=== PATIENT | male | born 1930 | race Caucasian/White ===

== ENCOUNTER 2016-11-08 17:37 | Emergency (ER) | payer MEDICARE, OTHER ==
[2016-11-08 17:56] VITALS: BP 130/61
[2016-11-08] MEDS ORDERED: Sodium Chloride 0.9% 10 ML Syringe FLUSH PRN ×2 (18:46→20:15)
--- NOTE | 2016-11-08 19:19 | EDM.PDOC ---
ED HPI GENERAL MEDICAL PROBLEM - General Chief Complaint: Cardiovascular Problem Stated Complaint: SENT BY DR. PINEDA Time Seen by Provider: 11/08/16 18:48 Source of Information: Reports: Patient History Limitations: Reports: No Limitations - History of Present Illness INITIAL COMMENTS - FREE TEXT/NARRATIVE: 86-year-old male presents for evaluation and treatment multiple different complaints. The patient is unaware why he is here. He currently has no complaints. He denies any current chest pain, fevers, nausea, vomiting or any shortness of breath. His family feels that he is more short of breath than normal. He complains of a slight sore throat. Dr. Crawley called earlier today. The patient was seen at his clinic. Reportedly the patient had not done well over the weekend. He presented today with bilateral leg pain, shortness of breath, sore throat and malaise. Lab studies were performed and he was found to have an elevated d-dimer, 1.96, this was sent to us for further management and care. Of note his CRP was also markedly elevated, 186. his LFTs are slightly elevated. The patient's is present and states that he had a rough weekend. She states on Tuesday night he woke up with stiffness in his bilateral arms. She attempted to bring his arms down as they were laying in bed. She was unable to do this. The patient does not remember this. She feels he is more weak than normal. She also feels that he is more short of breath than normal. She reports that over the last few days he has been complaining of bilateral leg pain. States the right is greater than the left. She states she can no longer put on his socks due to weakness. Of note, patient reports in 1987 he was sent to [facility]. He experienced diffuse generalized, weakness reports his muscles were unable to work. He had A complete work up at [place]. They were unable to identify the cause of his weakness. He responded well with high doses of steroids. Past surgeries include a cholecystectomy. - Related Data Allergies Allergy/AdvReac Type Severity Reaction Status Date / Time No Known Allergies Allergy Verified 11/08/16 17:57 Home Meds: Home Meds Antiox#10/Om3/DHA/EPA/Lut/Zeax [I-Caps with Lutein-Tustin 3 SFG] 1 tab PO DAILY 11/08/16 [History] Aspirin [Ecotrin] 81 mg PO DAILY 11/08/16 [History] Losartan [Cozaar] 100 mg PO DAILY 11/08/16 [History] Prednisone [IJD: predniSONE] 20 mg PO WITHBREAKFAST #7 tab 11/08/16 [Rx] Sertraline [Zoloft] 25 mg PO DAILY 11/08/16 [History] Simvastatin [Simvastatin] 20 mg PO DAILY 11/08/16 [History] Past Medical History - Past Health History Medical/Surgical History: Denies Medical/Surgical History HEENT History: Reports: Impaired Vision Cardiovascular History: Reports: High Cholesterol, Hypertension Social & Family History - Tobacco Use Smoking Status *Q: Never Smoker Second Hand Smoke Exposure: No - Alcohol Use Days Per Week of Alcohol Use: 0 - Recreational Drug Use Recreational Drug Use: No ED ROS GENERAL - Review of Systems Review Of Systems: See Below Constitutional: Reports: Malaise, Weakness. Denies: Fever HEENT: Reports: Throat Pain Respiratory: Reports: Shortness of Breath Cardiovascular: Denies: Chest Pain GI/Abdominal: Denies: Abdominal Pain, Nausea, Vomiting Musculoskeletal: Reports: Leg Pain (bilateral, right > left) ED EXAM, GENERAL - Physical Exam Exam: See Below Exam Limited By: No Limitations General Appearance: Alert, WD/WN, No Apparent Distress Ears: Normal External Exam, Normal Canal, Hearing Grossly Normal, Normal TMs Nose: Normal Inspection Throat/Mouth: Normal Inspection, Normal Lips, Normal Voice, No Airway Compromise Neck: Normal Inspection, Supple, Non-Tender Respiratory/Chest: No Respiratory Distress, Lungs Clear, Normal Breath Sounds Cardiovascular: Normal Peripheral Pulses, Regular Rate, Rhythm, No Edema, Systolic Murmur (grade 2) Peripheral Pulses: 2+: Radial (L), Radial (R), Posterior Tibial (L), Posterior Tibial (R), Dorsalis Pedis (L), Dorsalis Pedis (R) GI/Abdominal: Normal Bowel Sounds, Soft, Non-Tender Extremities: Normal Inspection, Non-Tender, Normal Capillary Refill, Other ( negative straight leg raise bilaterally) Neurological: Alert, Oriented, Normal Cognition Psychiatric: Normal Affect, Normal Mood Skin Exam: Warm, Dry, Normal Color EKG INTERPRETATION EKG Date: 11/08/16 Time: 18:50 Rhythm: NSR Rate (beats/min): 75 [place]: normal P-wave: present QRS: LBBB ST-T: normal QT: normal Comparison: no change EKG Interpretation Comments: Sinus rhythm at 75 bpm. LBBB pattern. No obvious ischemia. Reviewed by myself and Dr. Batres. Course - Vital Signs Last Recorded V/S: Last Vital Signs Temp 37.4 C 11/08/16 17:55 Pulse 79 11/08/16 17:55 Resp 18 11/08/16 17:55 BP 130/61 11/08/16 17:55 Pulse Ox 98 11/08/16 17:55 - Orders/Labs/Meds Labs: Laboratory Tests 11/08/16 11/08/16 11/08/16 Range/Units 19:00 19:00 19:00 WBC 9.32 H (4.23-9.07) K/mm3 RBC 3.60 L (4.63-6.08) M/mm3 Hgb 11.8 L (13.7-17.5) gm/L Hct 34.2 L (40.1-51.0) % MCV 95.0 H (79.0-92.2) fl MCH 32.8 H (25.7-32.2) pg MCHC 34.5 (32.2-35.5) g/dl RDW Std Deviation 35.6 (35.1-43.9) fL Plt Count 338 H (163-337) K/mm3 MPV 8.5 L (9.4-12.3) fl Neut % (Auto) 75.8 H (34.0-67.9) % Lymph % (Auto) 10.5 L (21.8-53.1) % Gilliam % (Auto) 11.7 (5.3-12.2) % Eos % (Auto) 1.4 (0.8-7.0) Baso % (Auto) 0.3 (0.1-1.2) % Neut # (Auto) 7.06 H (1.78-5.38) K/mm3 Lymph # (Auto) 0.98 L (1.32-3.57) K/mm3 Gilliam # (Auto) 1.09 H (0.30-0.82) K/mm3 Eos # (Auto) 0.13 (0.04-0.54) K/mm3 Baso # (Auto) 0.03 (0.01-0.08) K/mm3 ESR (0-15) mm/hr PT 10.7 (8.0-13.0) SECONDS INR 0.98 APTT 30 (22-36) SECONDS Sodium 135 L (136-145) mEq/L Potassium 4.2 (3.5-5.1) mEq/L Chloride 100 (98-107) mEq/L Carbon Dioxide 29 (21-32) mEq/L Anion Gap 10.2 (5-15) BUN 14 (7-18) mg/dL Creatinine 1.0 (0.7-1.3) mg/dL Est Cr Clr Drug Dosing TNP Estimated GFR (MDRD) > 60 (>60) mL/min BUN/Creatinine Ratio 14.0 (14-18) Glucose 130 H (83-115) mg/dL Calcium 8.9 (8.5-10.1) mg/dL Magnesium (1.8-2.4) mg/dl Total Bilirubin 0.5 (0.2-1.0) mg/dL AST 43 H (15-37) U/L ALT 67 H (16-63) U/L Alkaline Phosphatase 139 H (46-116) U/L Creatine Kinase (39-308) U/L CK-MB (CK-2) 0.8 (0-3.6) ng/ml Troponin I < 0.017 (0.00-0.056) ng/mL C-Reactive Protein (<1.0) mg/dL B-Natriuretic Peptide (0-100) pg/mL Total Protein 7.0 (6.4-8.2) g/dl Albumin 2.6 L (3.4-5.0) g/dl Globulin 4.4 gm/dL Albumin/Globulin Ratio 0.6 L (1-2) Monoscreen (NEGATIVE) 11/08/16 11/08/16 11/08/16 Range/Units 19:00 19:00 19:00 WBC (4.23-9.07) K/mm3 RBC (4.63-6.08) M/mm3 Hgb (13.7-17.5) gm/L Hct (40.1-51.0) % MCV (79.0-92.2) fl MCH (25.7-32.2) pg MCHC (32.2-35.5) g/dl RDW Std Deviation (35.1-43.9) fL Plt Count (163-337) K/mm3 MPV (9.4-12.3) fl Neut % (Auto) (34.0-67.9) % Lymph % (Auto) (21.8-53.1) % Gilliam % (Auto) (5.3-12.2) % Eos % (Auto) (0.8-7.0) Baso % (Auto) (0.1-1.2) % Neut # (Auto) (1.78-5.38) K/mm3 Lymph # (Auto) (1.32-3.57) K/mm3 Gilliam # (Auto) (0.30-0.82) K/mm3 Eos # (Auto) (0.04-0.54) K/mm3 Baso # (Auto) (0.01-0.08) K/mm3 ESR (0-15) mm/hr PT (8.0-13.0) SECONDS INR APTT (22-36) SECONDS Sodium (136-145) mEq/L Potassium (3.5-5.1) mEq/L Chloride (98-107) mEq/L Carbon Dioxide (21-32) mEq/L Anion Gap (5-15) BUN (7-18) mg/dL Creatinine (0.7-1.3) mg/dL Est Cr Clr Drug Dosing Estimated GFR (MDRD) (>60) mL/min BUN/Creatinine Ratio (14-18) Glucose (83-115) mg/dL Calcium (8.5-10.1) mg/dL Magnesium 2.0 (1.8-2.4) mg/dl Total Bilirubin (0.2-1.0) mg/dL AST (15-37) U/L ALT (16-63) U/L Alkaline Phosphatase (46-116) U/L Creatine Kinase (39-308) U/L CK-MB (CK-2) (0-3.6) ng/ml Troponin I (0.00-0.056) ng/mL C-Reactive Protein (<1.0) mg/dL B-Natriuretic Peptide 397 H (0-100) pg/mL Total Protein (6.4-8.2) g/dl Albumin (3.4-5.0) g/dl Globulin gm/dL Albumin/Globulin Ratio (1-2) Monoscreen Negative (NEGATIVE) 11/08/16 11/08/16 11/08/16 Range/Units 19:00 19:00 19:00 WBC (4.23-9.07) K/mm3 RBC (4.63-6.08) M/mm3 Hgb (13.7-17.5) gm/L Hct (40.1-51.0) % MCV (79.0-92.2) fl MCH (25.7-32.2) pg MCHC (32.2-35.5) g/dl RDW Std Deviation (35.1-43.9) fL Plt Count (163-337) K/mm3 MPV (9.4-12.3) fl Neut % (Auto) (34.0-67.9) % Lymph % (Auto) (21.8-53.1) % Gilliam % (Auto) (5.3-12.2) % Eos % (Auto) (0.8-7.0) Baso % (Auto) (0.1-1.2) % Neut # (Auto) (1.78-5.38) K/mm3 Lymph # (Auto) (1.32-3.57) K/mm3 Gilliam # (Auto) (0.30-0.82) K/mm3 Eos # (Auto) (0.04-0.54) K/mm3 Baso # (Auto) (0.01-0.08) K/mm3 ESR 98 H (0-15) mm/hr PT (8.0-13.0) SECONDS INR APTT (22-36) SECONDS Sodium (136-145) mEq/L Potassium (3.5-5.1) mEq/L Chloride (98-107) mEq/L Carbon Dioxide (21-32) mEq/L Anion Gap (5-15) BUN (7-18) mg/dL Creatinine (0.7-1.3) mg/dL Est Cr Clr Drug Dosing Estimated GFR (MDRD) (>60) mL/min BUN/Creatinine Ratio (14-18) Glucose (83-115) mg/dL Calcium (8.5-10.1) mg/dL Magnesium (1.8-2.4) mg/dl Total Bilirubin (0.2-1.0) mg/dL AST (15-37) U/L ALT (16-63) U/L Alkaline Phosphatase (46-116) U/L Creatine Kinase 70 (39-308) U/L CK-MB (CK-2) (0-3.6) ng/ml Troponin I (0.00-0.056) ng/mL C-Reactive Protein 16.3 H* (<1.0) mg/dL B-Natriuretic Peptide (0-100) pg/mL Total Protein (6.4-8.2) g/dl Albumin (3.4-5.0) g/dl Globulin gm/dL Albumin/Globulin Ratio (1-2) Monoscreen (NEGATIVE) Meds: Medications Discontinued Medications Generic Name Dose Route Start Last Admin Trade Name Freq PRN Reason Stop Dose Admin Sodium Chloride 100 mls @ 65 mls/hr 11/08/16 20:15 11/08/16 20:45 Normal Saline IV 65 mls/hr ASDIRECTED STEFAN Administration Iopamidol 100 ml 11/08/16 20:15 11/08/16 20:45 Isovue-370 (76%) IVPUSH 11/08/16 20:16 100 ml ONETIME ONE Administration Iopamidol 50 ml 11/08/16 20:15 11/08/16 20:45 Isovue-370 (76%) IVPUSH 11/08/16 20:16 50 ml ONETIME ONE Administration Sodium Chloride 10 ml 11/08/16 18:46 11/08/16 19:00 Saline Flush FLUSH 10 ml ASDIRECTED PRN Administration Keep Vein Open Sodium Chloride 10 ml 11/08/16 20:15 11/08/16 20:45 Saline Flush FLUSH 10 ml ONETIME PRN Administration IV FLUSH - Radiology Interpretation Free Text/Narrative:: CT Angiogram of the chest impression per Dr. Delong: 1. No findings of PE 2. Other incidental findings as described. Bilateral lower extremity ultrasound of the legs impression per Vrad: Normal bilateral lower extremity duplex venous ultrasound. - Re-Assessments/Exams Free Text/Narrative Re-Assessment/Exam: 11/08/16 19:47 WBC is mildly elevated at 9.32, hgb is 11.8, plts are 338 sodium is 135, potassium is 4.2 and chloride is 100. Anion gap is 10.2. Glucose is 130 trop is <0.017 CKMB is 0.8 BNP is 397 d-dimer obtained earlier is 1.96 mono added on to labs 11/08/16 21:18 Gilliam is negative Magnesium and CK added to labs. 11/08/16 21:51 Reviewed the labs, ekg and chest CT results with the patient and his family. We will obtain bilateral ultrasound of the legs due to leg pain complaints and elevated d dimer. Discussed case with Dr. Euceda recommend adding on an ESR and CRP. Possibly PMR causing symptoms. 11/08/16 23:02 Magnesium is 2.0 creatinine kinase is 70 CRP is 16.3 ESR is 98 Ultrasound is negative. I feel he likely has something like PMR. Will start low dose, 20mg daily, prednisone. Will discharge home. Discharge instructions as documented. Departure - Departure Time of Disposition: 23:01 Disposition: Home, Self-Care 01 Condition: fair Clinical Impression: Leg pain, bilateral, Viral pharyngitis Prescriptions: Prednisone [IJD: predniSONE] 20 mg PO WITHBREAKFAST #7 tab Referrals: Keshawn Pineda MD [Primary Care Provider] - Forms: ED Department Discharge Additional Instructions: Take the prednisone as prescribed. One tab daily for 7 days. Start this prescription tomorrow. [id number] Tylenol or Motrin as needed for pain relief. Follow up with her primary care provider on Tuesday or Tuesday. We suspect you have a disease called polymyalgia rheumatica. This is often diagnoised and cared by rheumatology. Please see Dr. Pineda for a referral to rheumatology and likely cardiology as well. Please return to the ER if symptoms change or worsen. ED HPI GENERAL MEDICAL PROBLEM - General Chief Complaint: Cardiovascular Problem Stated Complaint: SENT BY DR. PINEDA Time Seen by Provider: 11/08/16 18:48 Source of Information: Reports: Patient History Limitations: Reports: No Limitations - Related Data Allergies Allergy/AdvReac Type Severity Reaction Status Date / Time No Known Allergies Allergy Verified 11/08/16 17:57 Home Meds: Home Meds Antiox#10/Om3/DHA/EPA/Lut/Zeax [I-Caps with Lutein-Tustin 3 SFG] 1 tab PO DAILY 11/08/16 [History] Aspirin [Ecotrin] 81 mg PO DAILY 11/08/16 [History] Losartan [Cozaar] 100 mg PO DAILY 11/08/16 [History] Prednisone [IJD: predniSONE] 20 mg PO WITHBREAKFAST #7 tab 11/08/16 [Rx] Sertraline [Zoloft] 25 mg PO DAILY 11/08/16 [History] Simvastatin [Simvastatin] 20 mg PO DAILY 11/08/16 [History] Past Medical History - Past Health History Medical/Surgical History: Denies Medical/Surgical History HEENT History: Reports: Impaired Vision Cardiovascular History: Reports: High Cholesterol, Hypertension Social & Family History - Tobacco Use Smoking Status *Q: Never Smoker Second Hand Smoke Exposure: No - Alcohol Use Days Per Week of Alcohol Use: 0 - Recreational Drug Use Recreational Drug Use: No ED ROS GENERAL - Review of Systems Review Of Systems: See Below Constitutional: Reports: Malaise Respiratory: Reports: Shortness of Breath Cardiovascular: Denies: Chest Pain ED EXAM, GENERAL - Physical Exam Exam: See Below Exam Limited By: No Limitations General Appearance: Alert, WD/WN, No Apparent Distress Respiratory/Chest: No Respiratory Distress, Lungs Clear, Normal Breath Sounds Cardiovascular: Normal Peripheral Pulses, Regular Rate, Rhythm, No Murmur Neurological: Alert, Oriented, Normal Cognition Psychiatric: Normal Affect, Normal Mood Skin Exam: Warm, Dry, Normal Color EKG INTERPRETATION EKG Date: 11/08/16 Time: 18:50 Rhythm: NSR Rate (beats/min): 75 [place]: normal P-wave: present QRS: LBBB ST-T: normal QT: normal Comparison: no change EKG Interpretation Comments: Sinus rhythm at 75 bpm. LBBB pattern. No obvious ischemia. Reviewed by myself and Dr. Batres. Course - Vital Signs Last Recorded V/S: Last Vital Signs Temp 37.4 C 11/08/16 17:55 Pulse 79 11/08/16 17:55 Resp 18 11/08/16 17:55 BP 130/61 11/08/16 17:55 Pulse Ox 98 11/08/16 17:55 - Orders/Labs/Meds Orders: Active Orders 24 hr Category Date Time Status Cardiac Monitoring [RC] . DIRECTED Care 11/08/16 18:46 Active EKG 12 Lead [EKG Documentation Completion] [RC] STAT Care 11/08/16 18:46 Active Peripheral IV Care [RC] . DIRECTED Care 11/08/16 18:46 Active Venous Doppler Lwr Ext Bi [US] Stat Exams 11/08/16 21:51 Ordered Sodium Chloride 0.9% [Normal Saline] 100 ml Med 11/08/16 20:15 Active IV ASDIRECTED Sodium Chloride 0.9% [Saline Flush] Med 11/08/16 18:46 Active 10 ml FLUSH ASDIRECTED PRN Sodium Chloride 0.9% [Saline Flush] Med 11/08/16 20:15 Active 10 ml FLUSH ONETIME PRN Peripheral IV Insertion Adult [OM.PC] Routine Oth 11/08/16 18:45 Ordered Medication Orders Sodium Chloride (Normal Saline) 100 mls @ 65 mls/hr IV ASDIRECTED STEFAN Last Admin: 11/08/16 20:45 Dose: 65 mls/hr Sodium Chloride (Saline Flush) 10 ml FLUSH ASDIRECTED PRN PRN Reason: Keep Vein Open Last Admin: 11/08/16 19:00 Dose: 10 ml Sodium Chloride (Saline Flush) 10 ml FLUSH ONETIME PRN PRN Reason: IV FLUSH Last Admin: 11/08/16 20:45 Dose: 10 ml Labs: Laboratory Tests 11/08/16 11/08/16 11/08/16 Range/Units 19:00 19:00 19:00 WBC 9.32 H (4.23-9.07) K/mm3 RBC 3.60 L (4.63-6.08) M/mm3 Hgb 11.8 L (13.7-17.5) gm/L Hct 34.2 L (40.1-51.0) % MCV 95.0 H (79.0-92.2) fl MCH 32.8 H (25.7-32.2) pg MCHC 34.5 (32.2-35.5) g/dl RDW Std Deviation 35.6 (35.1-43.9) fL Plt Count 338 H (163-337) K/mm3 MPV 8.5 L (9.4-12.3) fl Neut % (Auto) 75.8 H (34.0-67.9) % Lymph % (Auto) 10.5 L (21.8-53.1) % Gilliam % (Auto) 11.7 (5.3-12.2) % Eos % (Auto) 1.4 (0.8-7.0) Baso % (Auto) 0.3 (0.1-1.2) % Neut # (Auto) 7.06 H (1.78-5.38) K/mm3 Lymph # (Auto) 0.98 L (1.32-3.57) K/mm3 Gilliam # (Auto) 1.09 H (0.30-0.82) K/mm3 Eos # (Auto) 0.13 (0.04-0.54) K/mm3 Baso # (Auto) 0.03 (0.01-0.08) K/mm3 ESR (0-15) mm/hr PT 10.7 (8.0-13.0) SECONDS INR 0.98 APTT 30 (22-36) SECONDS Sodium 135 L (136-145) mEq/L Potassium 4.2 (3.5-5.1) mEq/L Chloride 100 (98-107) mEq/L Carbon Dioxide 29 (21-32) mEq/L Anion Gap 10.2 (5-15) BUN 14 (7-18) mg/dL Creatinine 1.0 (0.7-1.3) mg/dL Est Cr Clr Drug Dosing TNP Estimated GFR (MDRD) > 60 (>60) mL/min BUN/Creatinine Ratio 14.0 (14-18) Glucose 130 H (83-115) mg/dL Calcium 8.9 (8.5-10.1) mg/dL Magnesium (1.8-2.4) mg/dl Total Bilirubin 0.5 (0.2-1.0) mg/dL AST 43 H (15-37) U/L ALT 67 H (16-63) U/L Alkaline Phosphatase 139 H (46-116) U/L Creatine Kinase (39-308) U/L CK-MB (CK-2) 0.8 (0-3.6) ng/ml Troponin I < 0.017 (0.00-0.056) ng/mL C-Reactive Protein (<1.0) mg/dL B-Natriuretic Peptide (0-100) pg/mL Total Protein 7.0 (6.4-8.2) g/dl Albumin 2.6 L (3.4-5.0) g/dl Globulin 4.4 gm/dL Albumin/Globulin Ratio 0.6 L (1-2) Monoscreen (NEGATIVE) 06/05/17 06/05/17 06/05/17 Range/Units 19:00 19:00 19:00 WBC (4.23-9.07) K/mm3 RBC (4.63-6.08) M/mm3 Hgb (13.7-17.5) gm/L Hct (40.1-51.0) % MCV (79.0-92.2) fl MCH (25.7-32.2) pg MCHC (32.2-35.5) g/dl RDW Std Deviation (35.1-43.9) fL Plt Count (163-337) K/mm3 MPV (9.4-12.3) fl Neut % (Auto) (34.0-67.9) % Lymph % (Auto) (21.8-53.1) % Gilliam % (Auto) (5.3-12.2) % Eos % (Auto) (0.8-7.0) Baso % (Auto) (0.1-1.2) % Neut # (Auto) (1.78-5.38) K/mm3 Lymph # (Auto) (1.32-3.57) K/mm3 Gilliam # (Auto) (0.30-0.82) K/mm3 Eos # (Auto) (0.04-0.54) K/mm3 Baso # (Auto) (0.01-0.08) K/mm3 ESR (0-15) mm/hr PT (8.0-13.0) SECONDS INR APTT (22-36) SECONDS Sodium (136-145) mEq/L Potassium (3.5-5.1) mEq/L Chloride (98-107) mEq/L Carbon Dioxide (21-32) mEq/L Anion Gap (5-15) BUN (7-18) mg/dL Creatinine (0.7-1.3) mg/dL Est Cr Clr Drug Dosing Estimated GFR (MDRD) (>60) mL/min BUN/Creatinine Ratio (14-18) Glucose (83-115) mg/dL Calcium (8.5-10.1) mg/dL Magnesium 2.0 (1.8-2.4) mg/dl Total Bilirubin (0.2-1.0) mg/dL AST (15-37) U/L ALT (16-63) U/L Alkaline Phosphatase (46-116) U/L Creatine Kinase (39-308) U/L CK-MB (CK-2) (0-3.6) ng/ml Troponin I (0.00-0.056) ng/mL C-Reactive Protein (<1.0) mg/dL B-Natriuretic Peptide 397 H (0-100) pg/mL Total Protein (6.4-8.2) g/dl Albumin (3.4-5.0) g/dl Globulin gm/dL Albumin/Globulin Ratio (1-2) Monoscreen Negative (NEGATIVE) 11/08/16 11/08/16 11/08/16 Range/Units 19:00 19:00 19:00 WBC (4.23-9.07) K/mm3 RBC (4.63-6.08) M/mm3 Hgb (13.7-17.5) gm/L Hct (40.1-51.0) % MCV (79.0-92.2) fl MCH (25.7-32.2) pg MCHC (32.2-35.5) g/dl RDW Std Deviation (35.1-43.9) fL Plt Count (163-337) K/mm3 MPV (9.4-12.3) fl Neut % (Auto) (34.0-67.9) % Lymph % (Auto) (21.8-53.1) % Gilliam % (Auto) (5.3-12.2) % Eos % (Auto) (0.8-7.0) Baso % (Auto) (0.1-1.2) % Neut # (Auto) (1.78-5.38) K/mm3 Lymph # (Auto) (1.32-3.57) K/mm3 Gilliam # (Auto) (0.30-0.82) K/mm3 Eos # (Auto) (0.04-0.54) K/mm3 Baso # (Auto) (0.01-0.08) K/mm3 ESR 98 H (0-15) mm/hr PT (8.0-13.0) SECONDS INR APTT (22-36) SECONDS Sodium (136-145) mEq/L Potassium (3.5-5.1) mEq/L Chloride (98-107) mEq/L Carbon Dioxide (21-32) mEq/L Anion Gap (5-15) BUN (7-18) mg/dL Creatinine (0.7-1.3) mg/dL Est Cr Clr Drug Dosing Estimated GFR (MDRD) (>60) mL/min BUN/Creatinine Ratio (14-18) Glucose (83-115) mg/dL Calcium (8.5-10.1) mg/dL Magnesium (1.8-2.4) mg/dl Total Bilirubin (0.2-1.0) mg/dL AST (15-37) U/L ALT (16-63) U/L Alkaline Phosphatase (46-116) U/L Creatine Kinase 70 (39-308) U/L CK-MB (CK-2) (0-3.6) ng/ml Troponin I (0.00-0.056) ng/mL C-Reactive Protein 16.3 H* (<1.0) mg/dL B-Natriuretic Peptide (0-100) pg/mL Total Protein (6.4-8.2) g/dl Albumin (3.4-5.0) g/dl Globulin gm/dL Albumin/Globulin Ratio (1-2) Monoscreen (NEGATIVE) Meds: Medications Generic Name Dose Route Start Last Admin Trade Name Freq PRN Reason Stop Dose Admin Sodium Chloride 100 mls @ 65 mls/hr 11/08/16 20:15 11/08/16 20:45 Normal Saline IV 65 mls/hr ASDIRECTED STEFAN Administration Sodium Chloride 10 ml 11/08/16 18:46 11/08/16 19:00 Saline Flush FLUSH 10 ml ASDIRECTED PRN Administration Keep Vein Open Sodium Chloride 10 ml 11/08/16 20:15 11/08/16 20:45 Saline Flush FLUSH 10 ml ONETIME PRN Administration IV FLUSH Discontinued Medications Generic Name Dose Route Start Last Admin Trade Name Freq PRN Reason Stop Dose Admin Iopamidol 100 ml 11/08/16 20:15 11/08/16 20:45 Isovue-370 (76%) IVPUSH 11/08/16 20:16 100 ml ONETIME ONE Administration Iopamidol 50 ml 11/08/16 20:15 11/08/16 20:45 Isovue-370 (76%) IVPUSH 06/05/17 20:16 50 ml ONETIME ONE Administration - Radiology Interpretation Free Text/Narrative:: CT Angiogram of the chest impression per Dr. Delong: 1. No findings of PE 2. Other incidental findings as described. Departure - Departure Time of Disposition: 23:01 Disposition: Home, Self-Care 01 Condition: fair Prescriptions: Prednisone [IJD: predniSONE] 20 mg PO WITHBREAKFAST #7 tab Referrals: Keshawn Pineda MD [Primary Care Provider] - Forms: ED Department Discharge - My Orders Last 24 Hours: My Active Orders 11/08/16 18:45 Peripheral IV Insertion Adult [OM.PC] Routine 11/08/16 18:46 Cardiac Monitoring [RC] . DIRECTED EKG 12 Lead [EKG Documentation Completion] [RC] STAT Peripheral IV Care [RC] . DIRECTED Sodium Chloride 0.9% [Saline Flush] 10 ml FLUSH ASDIRECTED PRN 11/08/16 20:15 Sodium Chloride 0.9% [Normal Saline] 100 ml IV ASDIRECTED Sodium Chloride 0.9% [Saline Flush] 10 ml FLUSH ONETIME PRN 11/08/16 21:51 Venous Doppler Lwr Ext Bi [US] Stat - Assessment/Plan Last 24 Hours: My Active Orders 11/08/16 18:45 Peripheral IV Insertion Adult [OM.PC] Routine 11/08/16 18:46 Cardiac Monitoring [RC] . DIRECTED EKG 12 Lead [EKG Documentation Completion] [RC] STAT Peripheral IV Care [RC] . DIRECTED Sodium Chloride 0.9% [Saline Flush] 10 ml FLUSH ASDIRECTED PRN 11/08/16 20:15 Sodium Chloride 0.9% [Normal Saline] 100 ml IV ASDIRECTED Sodium Chloride 0.9% [Saline Flush] 10 ml FLUSH ONETIME PRN 11/08/16 21:51 Venous Doppler Lwr Ext Bi [US] Stat Take the prednisone as prescribed. One tab daily for 7 days. Check his prescription tomorrow. [id number] Tylenol or Motrin as needed for pain relief. Follow up with her primary care provider on Tuesday or Tuesday. We suspect you have a disease called polymyalgia rheumatica. This is often diagnoised and cared Please return to the ER for symptoms change or worsen.
[2016-11-08] MEDS ORDERED: Iopamidol 755 Mg/ML 100 ML Bottle IVPUSH ONE (20:15)
[2016-11-08] MEDS ORDERED: Sodium Chloride 0.9% 100 ML IV SCH (20:15)
[2016-11-08] MEDS ORDERED: Iopamidol 755 MG/ML 50 ML Bottle IVPUSH ONE (20:15)
--- NOTE | 2016-11-08 21:13 | CT ---
CT chest Technique: Multiple axial sections through the chest were obtained. Intravenous contrast was utilized. Study has been performed as a pulmonary angiogram protocol. Comparison: No previous chest imaging. Findings: Pulmonary arteries are well-opacified. No filling defects are seen to indicate pulmonary embolism. Mediastinum and hilar regions show no adenopathy or mass. Aorta shows atherosclerotic calcification without aneurysmal dilatation. Coronary artery calcification is seen. No pericardial thickening is seen. Small portion of the visualized upper abdomen appears within normal limits. There is evidence of previous cholecystectomy. Lungs are clear. No pleural effusions are seen. Bone window settings were reviewed which shows scattered degenerative endplate spurring within the spine. Impression: 1. No findings of pulmonary embolism. 2. Other incidental findings as described above. Diagnostic code #2
--- NOTE | 2016-11-09 14:08 | US ---
Bilateral lower extremity deep venous ultrasound: Duplex and color flow imaging was obtained of the right and left common femoral, greater saphenous, superficial femoral, popliteal, posterior tibial and peroneal veins. Findings: Normal phasic flow, augmentation and compression is seen. Impression: 1. No evidence of deep venous thrombosis is seen within the right lower or left lower extremities. Diagnostic code #1
== END 2016-11-08 23:35 | disposition home or self-care (01) ==
LOC: JD.ED 17:37
DX: M79.605 Pain in left leg (principal); M79.604 Pain in right leg; J02.9 Acute pharyngitis, unspecified; I44.7 Left bundle-branch block, unspecified; R06.02 Shortness of breath; Z79.899 Other long term (current) drug therapy; Z79.82 Long term (current) use of aspirin; I10 Essential (primary) hypertension; E78.00 Pure hypercholesterolemia, unspecified
CPT/HCPCS: 36415; 71275; 80053; 82550; 82553; 83735; 83880; 84484; 85025; 85610; 85652; 85730; 86140; 86308; 93005; 93970; 99284; J7030; J7050; Q9967

== ENCOUNTER 2017-07-28 22:00 | Emergency (ER) | payer MEDICARE, OTHER ==
[2017-07-28 22:08] VITALS: BP 114/64
--- NOTE | 2017-07-28 22:11 | EDM.PDOC ---
ED HPI GENERAL MEDICAL PROBLEM - General Chief Complaint: Respiratory Problem Stated Complaint: POSS HEART ATTACK Time Seen by Provider: 07/28/17 22:11 - History of Present Illness INITIAL COMMENTS - FREE TEXT/NARRATIVE: 87-year-old male presents to the emergency room with worsening weakness intermittent confusion. 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 The patient has had increasing shortness of breath and weakness for the last couple of days. He has not had associated chest pain or chest pressure with this at times they've noticed that his speech is been a little off he has not had any one- sided weakness however he's been globally weak at times with difficulty standing and ambulating this is improved a little bit with the use of a walker. - Related Data Allergies Allergy/AdvReac Type Severity Reaction Status Date / Time No Known Allergies Allergy Verified 11/08/16 17:57 Home Meds: Home Meds Aspirin [Ecotrin] 81 mg PO DAILY 11/08/16 [History] Losartan [Cozaar] 100 mg PO DAILY 11/08/16 [History] Acetaminophen [Tylenol Extra Strength] 500 mg PO TID PRN 07/28/17 [History] Calcium Carbonate [Calcium] 600 mg PO DAILY 07/28/17 [History] Isosorbide Mononitrate [Imdur] 30 mg PO DAILY 07/28/17 [History] Multivitamin [Multivitamins] 1 tab PO DAILY 07/28/17 [History] Sennosides/Docusate Sodium [Senna S Tablet] 2 tab PO DAILY 07/28/17 [History] Sertraline HCl [Sertraline HCl] 50 mg PO DAILY 07/28/17 [History] Sodium Fluoride [Denta 5000 Plus] 1 dose TOP BID 07/28/17 [History] predniSONE [Prednisone] 9 mg PO DAILY 07/28/17 [History] Past Medical History - Past Health History Medical/Surgical History: Denies Medical/Surgical History HEENT History: Reports: Impaired Vision Cardiovascular History: Reports: High Cholesterol, Hypertension Social & Family History - Tobacco Use Smoking Status *Q: Never Smoker Second Hand Smoke Exposure: No - Alcohol Use Days Per Week of Alcohol Use: 0 - Recreational Drug Use Recreational Drug Use: No ED ROS GENERAL - Review of Systems Review Of Systems: See Below Constitutional: Reports: No Symptoms HEENT: Reports: No Symptoms Respiratory: Reports: Shortness of Breath. Denies: No Symptoms, Wheezing, Cough , Sputum, Hemoptysis Cardiovascular: Reports: Chest Pain (Minimal), Dyspnea on Exertion. Denies: Syncope GI/Abdominal: Reports: No Symptoms : Reports: No Symptoms Neurological: Reports: Confusion, Dizziness. Denies: Headache Psychiatric: Reports: No Symptoms Hematologic/Lymphatic: Reports: No Symptoms Immunologic: Reports: No Symptoms ED EXAM, GENERAL - Physical Exam Exam: See Below Exam Limited By: No Limitations General Appearance: Alert, No Apparent Distress Eye Exam: Right Eye: Normal Inspection, Left Eye: Other (He has a eye on the side) Ears: Normal External Exam, Normal Canal, Hearing Grossly Normal, Normal TMs Nose: Normal Inspection, Normal Mucosa, No Blood Throat/Mouth: Normal Inspection, Normal Lips, Normal Teeth, Normal Gums, Normal Oropharynx, Normal Voice, No Airway Compromise Head: Atraumatic, Normocephalic Neck: Normal Inspection, Supple, Non-Tender, Full Range of Motion, Other (No JVD ). No: Lymphadenopathy (L), Lymphadenopathy (R) Respiratory/Chest: No Respiratory Distress, Lungs Clear, Normal Breath Sounds Cardiovascular: Regular Rate, Rhythm, No Edema, Other (Diminished heart sounds but I am not hear no murmur) GI/Abdominal: Normal Bowel Sounds, Soft, Non-Tender, Other (Mild distention no tenderness rebound or guarding) Back Exam: Normal Inspection. No: CVA Tenderness (L), CVA Tenderness (R) Extremities: Normal Inspection, Non-Tender, No Pedal Edema Neurological: Alert, Oriented, Normal Cognition Psychiatric: Normal Affect, Normal Mood Skin Exam: Warm, Dry, Intact Course - Vital Signs Last Recorded V/S: Last Vital Signs Temp 36.6 C 07/28/17 22:06 Pulse 81 07/28/17 22:06 Resp 16 07/28/17 22:06 BP 114/64 07/28/17 22:06 Pulse Ox 96 07/28/17 22:06 Orthostatic Blood Pressure [ 106/83 Standing] Orthostatic Blood Pressure [ 119/71 Sitting] Orthostatic Blood Pressure [ 107/66 Supine] - Orders/Labs/Meds Orders: Active Orders 24 hr Category Date Time Status EKG Documentation Completion [RC] STAT Care 07/28/17 22:30 Active Chest 1V Frontal [CR] Stat Exams 07/28/17 22:30 Taken Head wo Cont [CT] Stat Exams 07/28/17 22:41 Taken Labs: Laboratory Tests 07/28/17 07/28/17 07/28/17 Range/Units 22:13 22:13 22:13 WBC 16.88 H (4.23-9.07) K/mm3 RBC 4.01 L (4.63-6.08) M/mm3 Hgb 11.5 L (13.7-17.5) gm/L Hct 35.0 L (40.1-51.0) % MCV 87.3 (79.0-92.2) fl MCH 28.7 (25.7-32.2) pg MCHC 32.9 (32.2-35.5) g/dl RDW Std Deviation 44.5 H (35.1-43.9) fL Plt Count 209 (163-337) K/mm3 MPV 9.4 (9.4-12.3) fl Neutrophils % (Manual) 88 H (40-60) % Band Neutrophils % 0 (0-10) % Lymphocytes % (Manual) 4 L (20-40) % Atypical Lymphs % 1 % Monocytes % (Manual) 7 (2-10) % Eosinophils % (Manual) 0 L (0.8-7.0) % Basophils % (Manual) 0 L (0.2-1.2) Platelet Estimate Adequate Plt Morphology Comment Normal Hypochromasia 1+ slight Poikilocytosis 1+ slight Anisocytosis 1+ slight Microcytosis 1+ slight Macrocytosis 1+ slight Tear Drop Cells 1+ slight Ovalocytes 1+ slight RBC Morph Comment Abnormal PT 10.8 (8.0-13.0) SECONDS INR 1.01 APTT 32 (22-36) SECONDS Sodium 128 L (136-145) mEq/L Potassium 4.5 (3.5-5.1) mEq/L Chloride 91 L (98-107) mEq/L Carbon Dioxide 26 (21-32) mEq/L Anion Gap 15.5 H (5-15) BUN 22 H (7-18) mg/dL Creatinine 1.4 H (0.7-1.3) mg/dL Est Cr Clr Drug Dosing 31.13 mL/min Estimated GFR (MDRD) 48 (>60) mL/min BUN/Creatinine Ratio 15.7 (14-18) Glucose 121 H (83-115) mg/dL Calcium 8.5 (8.5-10.1) mg/dL Total Bilirubin 0.9 (0.2-1.0) mg/dL AST 17 (15-37) U/L ALT 26 (16-63) U/L Alkaline Phosphatase 80 (46-116) U/L Troponin I 0.027 (0.00-0.056) ng/mL NT-Pro-B Natriuret Pep (0-450) pg/mL Total Protein 6.9 (6.4-8.2) g/dl Albumin 3.0 L (3.4-5.0) g/dl Globulin 3.9 gm/dL Albumin/Globulin Ratio 0.8 L (1-2) Urine Color (Yellow) Urine Appearance (Clear) Urine pH (5.0-8.0) Ur Specific [place] (1.005-1.030) Urine Protein (Negative) Urine Glucose (UA) (Negative) Urine Ketones (Negative) Urine Occult Blood (Negative) Urine Nitrite (Negative) Urine Bilirubin (Negative) Urine Urobilinogen (0.2-1.0) Ur Leukocyte Esterase (Negative) Urine RBC (0-5) /hpf Urine WBC (0-5) /hpf Ur Epithelial Cells (0-5) /hpf Urine Bacteria (FEW) /hpf Hyaline Casts (0-5) /lpf Urine Mucus (FEW) /hpf 07/28/17 07/29/17 Range/Units 22:13 00:40 WBC (4.23-9.07) K/mm3 RBC (4.63-6.08) M/mm3 Hgb (13.7-17.5) gm/L Hct (40.1-51.0) % MCV (79.0-92.2) fl MCH (25.7-32.2) pg MCHC (32.2-35.5) g/dl RDW Std Deviation (35.1-43.9) fL Plt Count (163-337) K/mm3 MPV (9.4-12.3) fl Neutrophils % (Manual) (40-60) % Band Neutrophils % (0-10) % Lymphocytes % (Manual) (20-40) % Atypical Lymphs % % Monocytes % (Manual) (2-10) % Eosinophils % (Manual) (0.8-7.0) % Basophils % (Manual) (0.2-1.2) Platelet Estimate Plt Morphology Comment Hypochromasia Poikilocytosis Anisocytosis Microcytosis Macrocytosis Tear Drop Cells Ovalocytes RBC Morph Comment PT (8.0-13.0) SECONDS INR APTT (22-36) SECONDS Sodium (136-145) mEq/L Potassium (3.5-5.1) mEq/L Chloride (98-107) mEq/L Carbon Dioxide (21-32) mEq/L Anion Gap (5-15) BUN (7-18) mg/dL Creatinine (0.7-1.3) mg/dL Est Cr Clr Drug Dosing mL/min Estimated GFR (MDRD) (>60) mL/min BUN/Creatinine Ratio (14-18) Glucose (83-115) mg/dL Calcium (8.5-10.1) mg/dL Total Bilirubin (0.2-1.0) mg/dL AST (15-37) U/L ALT (16-63) U/L Alkaline Phosphatase (46-116) U/L Troponin I (0.00-0.056) ng/mL NT-Pro-B Natriuret Pep 35631 H (0-450) pg/mL Total Protein (6.4-8.2) g/dl Albumin (3.4-5.0) g/dl Globulin gm/dL Albumin/Globulin Ratio (1-2) Urine Color Yellow (Yellow) Urine Appearance Clear (Clear) Urine pH 7.5 (5.0-8.0) Ur Specific [place] 1.015 (1.005-1.030) Urine Protein 1+ H (Negative) Urine Glucose (UA) Negative (Negative) Urine Ketones Negative (Negative) Urine Occult Blood Negative (Negative) Urine Nitrite Negative (Negative) Urine Bilirubin Negative (Negative) Urine Urobilinogen 0.2 (0.2-1.0) Ur Leukocyte Esterase Negative (Negative) Urine RBC 0-5 (0-5) /hpf Urine WBC 5-10 H (0-5) /hpf Ur Epithelial Cells 0-5 (0-5) /hpf Urine Bacteria Few (FEW) /hpf Hyaline Casts 0-5 (0-5) /lpf Urine Mucus Not seen (FEW) /hpf - Re-Assessments/Exams Free Text/Narrative Re-Assessment/Exam: 07/29/17 01:29 Patient has done well. Emergency room is been pain free. He's been in normal sinus rhythm.. Just with time he felt much better and he was ambulatory through the emergency department. Patient's case was discussed with Dr. 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 He has follow-up with his machine tank operator and thoracic surgeon early this next week to discuss his options really are all high risk. No reasonable options for treating the patient at this point he does have some degree of COPD and should be seen by pulmonology in the near future consider C Pap as well as potential bronchodilator therapy. At this point the patient feels well enough to go home and family is in agreement to this. No medication changes at this point Departure - Departure Time of Disposition: 01:33 Disposition: Home, Self-Care 01 Clinical Impression: Pulmonary hypertension, Valvular heart disease Congestive heart failure (CHF) Qualifiers: Heart failure type: combined systolic and diastolic - Discharge Information Referrals: Keshawn Mcdaniel MD [Primary Care Provider] - Forms: ED Department Discharge Additional Instructions: Return to emergency room with any questions problems worsening symptoms. Follow-up with doctor's appointments as scheduled. Use caution ambulate with your walker and with assistance if needed. - My Orders Last 24 Hours: My Active Orders 07/28/17 22:30 EKG Documentation Completion [RC] STAT Chest 1V Frontal [CR] Stat 07/28/17 22:41 Head wo Cont [CT] Stat - Assessment/Plan Last 24 Hours: My Active Orders 07/28/17 22:30 EKG Documentation Completion [RC] STAT Chest 1V Frontal [CR] Stat 07/28/17 22:41 Head wo Cont [CT] Stat
--- NOTE | 2017-07-29 09:42 | CT ---
Head CT Technique: Multiple axial sections through the brain were obtained. Intravenous contrast was not utilized. Comparison: Prior head CT study of 01/03/17. Findings: Ventricles along with basal cisterns and sulci over the convexities are mildly prominent for the patient's age. Diffuse decreased density is noted within the periventricular and subcortical white matter compatible with small vessel ischemic demyelination change. No other abnormal parenchymal densities are seen. No evidence of intracranial hemorrhage. No midline shift or mass effect is seen. Bone window settings were reviewed which show deformity of the right globe which is stable from prior exam. No acute calvarial abnormality is identified. Atherosclerotic calcification is seen within the carotid siphon and within the vertebral vessels. Impression: 1. Mild senescent change as described above. Other incidental findings. 2. No acute intracranial abnormality is identified. Diagnostic code #2 Agree with preliminary report issued by [facility] (07/29/17, 12:11 AM Central Time)
--- NOTE | 2017-07-29 09:42 | CR ---
Chest: Portable view of the chest was obtained. Comparison: No prior chest x-ray. Heart size and mediastinum are normal. Lungs are clear. Degenerative change is seen within both shoulders as an incidental note. Mild endplate spurring is also noted within the spine. Impression: 1. Nothing acute is identified on portable chest x-ray. Diagnostic code #2
== END 2017-07-29 01:41 | disposition home or self-care (01) ==
LOC: JD.ED 22:00
DX: I38 Endocarditis, valve unspecified (principal); I27.20 Pulmonary hypertension, unspecified; I11.0 Hypertensive heart disease with heart failure; I50.40 Unspecified combined systolic (congestive) and diastolic (congestive) heart failure; J44.9 Chronic obstructive pulmonary disease, unspecified; E78.00 Pure hypercholesterolemia, unspecified; Z79.899 Other long term (current) drug therapy
CPT/HCPCS: 36415; 70450; 70450-26; 71045; 71045-26; 80053; 81001; 83880; 84484; 85025; 85610; 85730; 93005; 93010; 99285; 99285-25

== ENCOUNTER 2017-10-18 13:04 | Emergency (ER) | payer MEDICARE, OTHER ==
[2017-10-18 13:24] VITALS: BP 121/75
[2017-10-18] MEDS ORDERED: Sodium Chloride 0.9% 10 ML Syringe FLUSH PRN (13:46)
--- NOTE | 2017-10-18 14:04 | EDM.PDOC ---
ED HPI GENERAL MEDICAL PROBLEM - General Chief Complaint: Cardiovascular Problem Stated Complaint: HEART ISSUES Time Seen by Provider: 10/18/17 13:35 Source of Information: Reports: Patient, Family, RN Notes Reviewed - History of Present Illness INITIAL COMMENTS - FREE TEXT/NARRATIVE: 87 year old male brought in by family with increased weakness, low energy the past 5 day, chronic dyspnea. Had 3 stents placed about 2 months ago. Chronic cough mostly nonprod. Hx of CHF. Had been of lasix, gained 5 lbs, started back up again about 1 week ago. Still weighing about 5 lbs over baseline. No abd pain, N/v. Chronic leg edema. Has had chronic indwelling hedrick for about 3 months. Catheter just changed about 4 days ago. Chest Pain Score (Numeric/FACES): 2 - Related Data Allergies Allergy/AdvReac Type Severity Reaction Status Date / Time No Known Allergies Allergy Verified 10/18/17 13:18 Home Meds: Home Meds Aspirin [Ecotrin] 81 mg PO DAILY 11/08/16 [History] Losartan [Cozaar] 25 mg PO DAILY 11/08/16 [History] Acetaminophen [Tylenol Extra Strength] 500 mg PO TID PRN 07/28/17 [History] Calcium Carbonate [Calcium] 600 mg PO DAILY 07/28/17 [History] Multivitamin [Multivitamins] 1 tab PO DAILY 07/28/17 [History] predniSONE [Prednisone] 6 mg PO DAILY 07/28/17 [History] Ascorbic Acid [Vitamin C] 500 mg PO DAILY 09/06/17 [History] Carvedilol [Coreg] 3.125 mg PO BID 09/06/17 [History] Cholecalciferol (Vitamin D3) [Vitamin D] 1 tab PO DAILY 09/06/17 [History] Clopidogrel [Plavix] 75 mg PO DAILY 09/06/17 [History] Furosemide [Lasix] 20 mg PO DAILY 09/06/17 [History] Nitroglycerin [Nitrostat] 0.4 mg SL ASDIRECTED PRN 09/06/17 [History] Pantoprazole [ProTONIX] 40 mg PO DAILY 09/06/17 [History] Rosuvastatin [Crestor] 20 mg PO DAILY 09/06/17 [History] Sertraline [Zoloft] 50 mg PO DAILY 09/06/17 [History] Cholecalciferol (Vitamin D3) [Vitamin D] 1 tab PO DAILY 10/18/17 [History] Past Medical History - Past Health History Medical/Surgical History: Denies Medical/Surgical History HEENT History: Reports: Impaired Vision 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 Cardiovascular History: Reports: High Cholesterol, Hypertension, Stents Musculoskeletal History: Reports: Fracture, Other (See Below) Other Musculoskeletal History: polymyalgia Endocrine/Metabolic History: Reports: Diabetes, Type II - Past Surgical History GI Surgical History: Reports: Appendectomy, Cholecystectomy Social & Family History - Tobacco Use Smoking Status *Q: Former Smoker Used Tobacco, but Quit: Yes Month/Year Tobacco Last Used: 60 years ago - Caffeine Use Caffeine Use: Reports: Coffee - Recreational Drug Use Recreational Drug Use: No ED ROS GENERAL - Review of Systems Review Of Systems: See Below Constitutional: Reports: Chills, Fatigue. Denies: Fever HEENT: Denies: Sinus Problem, Throat Pain Respiratory: Reports: Shortness of Breath, Cough. Denies: Pleuritic Chest Pain , Sputum, Hemoptysis Cardiovascular: Denies: Chest Pain Endocrine: Reports: Fatigue GI/Abdominal: Reports: Decreased Appetite. Denies: Abdominal Pain, Nausea, Vomiting Musculoskeletal: Denies: Leg Pain Skin: Denies: Rash Neurological: Reports: Weakness (generalized). Denies: Numbness, Tingling ED EXAM, GENERAL - Physical Exam Exam: See Below General Appearance: Alert, No Apparent Distress Throat/Mouth: Normal Inspection, Normal Oropharynx Head: Atraumatic. No: Facial Swelling Neck: Supple, Full Range of Motion Respiratory/Chest: No Respiratory Distress, Lungs Clear, Normal Breath Sounds Cardiovascular: Regular Rate, Rhythm GI/Abdominal: Soft, Non-Tender Extremities: Normal Inspection, Pedal Edema (mild bilat) Neurological: Alert, Oriented, No Motor/Sensory Deficits Skin Exam: Warm, Dry, Normal Color Course - Vital Signs Last Recorded V/S: Last Vital Signs Temp 97.6 F 10/18/17 13:15 Pulse 64 10/18/17 13:15 Resp 20 10/18/17 13:15 BP 121/75 10/18/17 13:15 Pulse Ox 97 10/18/17 13:15 - Orders/Labs/Meds Orders: Active Orders 24 hr Category Date Time Status EKG 12 Lead [EKG Documentation Completion] [RC] STAT Care 10/18/17 13:47 Active Peripheral IV Care [RC] . DIRECTED Care 10/18/17 13:49 Active CULTURE URINE [RM] Stat Lab 10/18/17 14:58 Ordered Sodium Chloride 0.9% [Saline Flush] Med 10/18/17 13:46 Active 10 ml FLUSH ASDIRECTED PRN Peripheral IV Insertion Adult [OM.PC] Stat Oth 10/18/17 13:47 Ordered Medication Orders Sodium Chloride (Saline Flush) 10 ml FLUSH ASDIRECTED PRN PRN Reason: Keep Vein Open Labs: Laboratory Tests 10/18/17 10/18/17 10/18/17 Range/Units 14:00 14:00 14:00 WBC 7.60 (4.23-9.07) K/mm3 RBC 4.12 L (4.63-6.08) M/mm3 Hgb 11.8 L (13.7-17.5) gm/L Hct 36.9 L (40.1-51.0) % MCV 89.6 (79.0-92.2) fl MCH 28.6 (25.7-32.2) pg MCHC 32.0 L (32.2-35.5) g/dl RDW Std Deviation 46.7 H (35.1-43.9) fL Plt Count 157 L (163-337) K/mm3 MPV 9.2 L (9.4-12.3) fl Neut % (Auto) 84.3 H (34.0-67.9) % Lymph % (Auto) 6.8 L (21.8-53.1) % [place] % (Auto) 8.4 (5.3-12.2) % Eos % (Auto) 0.3 L (0.8-7.0) Baso % (Auto) 0.1 (0.1-1.2) % Neut # (Auto) 6.40 H (1.78-5.38) K/mm3 Lymph # (Auto) 0.52 L (1.32-3.57) K/mm3 [place] # (Auto) 0.64 (0.30-0.82) K/mm3 Eos # (Auto) 0.02 L (0.04-0.54) K/mm3 Baso # (Auto) 0.01 (0.01-0.08) K/mm3 Manual Slide Review Abnormal smear Sodium 135 L (136-145) mEq/L Potassium 4.1 (3.5-5.1) mEq/L Chloride 100 (98-107) mEq/L Carbon Dioxide 29 (21-32) mEq/L Anion Gap 10.1 (5-15) BUN 26 H (7-18) mg/dL Creatinine 1.3 (0.7-1.3) mg/dL Est Cr Clr Drug Dosing 32.22 mL/min Estimated GFR (MDRD) 52 (>60) mL/min BUN/Creatinine Ratio 20.0 H (14-18) Glucose 144 H (83-115) mg/dL Calcium 9.0 (8.5-10.1) mg/dL Total Bilirubin 0.6 (0.2-1.0) mg/dL AST 25 (15-37) U/L ALT 42 (16-63) U/L Alkaline Phosphatase 106 (46-116) U/L Troponin I < 0.017 (0.00-0.056) ng/mL NT-Pro-B Natriuret Pep 9218 H (0-450) pg/mL Total Protein 6.8 (6.4-8.2) g/dl Albumin 3.3 L (3.4-5.0) g/dl Globulin 3.5 gm/dL Albumin/Globulin Ratio 0.9 L (1-2) Urine Color (Yellow) Urine Appearance (Clear) Urine pH (5.0-8.0) Ur Specific [place] (1.005-1.030) Urine Protein (Negative) Urine Glucose (UA) (Negative) Urine Ketones (Negative) Urine Occult Blood (Negative) Urine Nitrite (Negative) Urine Bilirubin (Negative) Urine Urobilinogen (0.2-1.0) Ur Leukocyte Esterase (Negative) Urine RBC (0-5) /hpf Urine WBC (0-5) /hpf Ur Epithelial Cells (0-5) /hpf Urine Bacteria (FEW) /hpf Urine Mucus (FEW) /hpf 10/18/17 Range/Units 14:10 WBC (4.23-9.07) K/mm3 RBC (4.63-6.08) M/mm3 Hgb (13.7-17.5) gm/L Hct (40.1-51.0) % MCV (79.0-92.2) fl MCH (25.7-32.2) pg MCHC (32.2-35.5) g/dl RDW Std Deviation (35.1-43.9) fL Plt Count (163-337) K/mm3 MPV (9.4-12.3) fl Neut % (Auto) (34.0-67.9) % Lymph % (Auto) (21.8-53.1) % [place] % (Auto) (5.3-12.2) % Eos % (Auto) (0.8-7.0) Baso % (Auto) (0.1-1.2) % Neut # (Auto) (1.78-5.38) K/mm3 Lymph # (Auto) (1.32-3.57) K/mm3 [place] # (Auto) (0.30-0.82) K/mm3 Eos # (Auto) (0.04-0.54) K/mm3 Baso # (Auto) (0.01-0.08) K/mm3 Manual Slide Review Sodium (136-145) mEq/L Potassium (3.5-5.1) mEq/L Chloride (98-107) mEq/L Carbon Dioxide (21-32) mEq/L Anion Gap (5-15) BUN (7-18) mg/dL Creatinine (0.7-1.3) mg/dL Est Cr Clr Drug Dosing mL/min Estimated GFR (MDRD) (>60) mL/min BUN/Creatinine Ratio (14-18) Glucose (83-115) mg/dL Calcium (8.5-10.1) mg/dL Total Bilirubin (0.2-1.0) mg/dL AST (15-37) U/L ALT (16-63) U/L Alkaline Phosphatase (46-116) U/L Troponin I (0.00-0.056) ng/mL NT-Pro-B Natriuret Pep (0-450) pg/mL Total Protein (6.4-8.2) g/dl Albumin (3.4-5.0) g/dl Globulin gm/dL Albumin/Globulin Ratio (1-2) Urine Color Yellow (Yellow) Urine Appearance Slt cloudy H (Clear) Urine pH 7.5 (5.0-8.0) Ur Specific [place] 1.015 (1.005-1.030) Urine Protein Negative (Negative) Urine Glucose (UA) Negative (Negative) Urine Ketones Negative (Negative) Urine Occult Blood Trace-lysed H (Negative) Urine Nitrite Positive H (Negative) Urine Bilirubin Negative (Negative) Urine Urobilinogen 0.2 (0.2-1.0) Ur Leukocyte Esterase 3+ H (Negative) Urine RBC 5-10 H (0-5) /hpf Urine WBC 10-20 H (0-5) /hpf Ur Epithelial Cells 0-5 (0-5) /hpf Urine Bacteria Many H (FEW) /hpf Urine Mucus Few (FEW) /hpf Meds: Medications Generic Name Dose Route Start Last Admin Trade Name Freq PRN Reason Stop Dose Admin Sodium Chloride 10 ml 10/18/17 13:46 Saline Flush FLUSH ASDIRECTED PRN Keep Vein Open Departure - Departure Time of Disposition: 15:10 Disposition: Home, Self-Care 01 Condition: Fair Clinical Impression: Congestive heart failure (CHF) Qualifiers: Heart failure type: combined systolic and diastolic Heart failure chronicity: acute on chronic Qualified Code(s): I50.43 - Acute on chronic combined systolic (congestive) and diastolic (congestive) heart failure Referrals: Keshawn Mcdaniel MD [Primary Care Provider] - Forms: ED Department Discharge Additional Instructions: increase furosemide to 4 mg daily until he lowers his weight by 3 lbs, than go back to 20 mg daily. Once he hits baseline, 5 lb wt loss than to back to 20 mg every other day. Urine culture has been done. There are usually results in about [address] Garcia or Madeline Serrano in 2 to 3 days for follow up and to check on urine culture. Start Cipro antibiotic 500 mg twice daily for now. Script has been sent to [facility]. Return to ED as needed if sx worsening in anyway. - My Orders Last 24 Hours: My Active Orders 10/18/17 13:46 Sodium Chloride 0.9% [Saline Flush] 10 ml FLUSH ASDIRECTED PRN 10/18/17 13:47 EKG 12 Lead [EKG Documentation Completion] [RC] STAT Peripheral IV Insertion Adult [OM.PC] Stat 10/18/17 13:49 Peripheral IV Care [RC] . DIRECTED 10/18/17 14:58 CULTURE URINE [RM] Stat - Assessment/Plan Last 24 Hours: My Active Orders 10/18/17 13:46 Sodium Chloride 0.9% [Saline Flush] 10 ml FLUSH ASDIRECTED PRN 10/18/17 13:47 EKG 12 Lead [EKG Documentation Completion] [RC] STAT Peripheral IV Insertion Adult [OM.PC] Stat 10/18/17 13:49 Peripheral IV Care [RC] . DIRECTED 10/18/17 14:58 CULTURE URINE [] Stat
--- NOTE | 2017-10-18 14:43 | CR ---
Chest: Portable view of the chest was obtained. Comparison: Prior chest x-ray of 07/28/17. Heart is enlarged. Pulmonary vessels are felt to be slightly congested. Lungs otherwise are clear. Bony structures show degenerative change within both shoulders as well as scattered disc space narrowing and degenerative spurring within the spine. Impression: 1. Findings suspicious for early CHF. 2. Other incidental findings. Diagnostic code #3
== END 2017-10-18 15:24 | disposition home or self-care (01) ==
LOC: JD.ED 13:04
DX: I11.0 Hypertensive heart disease with heart failure (principal); I50.43 Acute on chronic combined systolic (congestive) and diastolic (congestive) heart failure; E78.00 Pure hypercholesterolemia, unspecified; E11.9 Type 2 diabetes mellitus without complications; Z79.82 Long term (current) use of aspirin; Z87.891 Personal history of nicotine dependence; Z91.09 Other allergy status, other than to drugs and biological substances; Z79.899 Other long term (current) drug therapy
CPT/HCPCS: 36415; 71045; 71045-26; 80053; 81001; 83880; 84484; 85025; 87086; 87088; 87186; 93005; 99285-25

== ENCOUNTER 2017-12-13 20:42 | Emergency (ER) | payer MEDICARE, OTHER ==
[2017-12-13 20:46] VITALS: BP 129/80
--- NOTE | 2017-12-13 20:52 | EDM.PDOC ---
ED HPI GENERAL MEDICAL PROBLEM - General Chief Complaint: Back Pain or Injury Stated Complaint: [facility] Time Seen by Provider: 12/13/17 20:52 - History of Present Illness INITIAL COMMENTS - FREE TEXT/NARRATIVE: 87 year old male presents emergency room brought in by EMS with back pain and abdominal pain. Pain started after ground-level fall the patient fell backwards hitting his back on a hard surface he has pain up and down his back he also has some right midabdominal discomfort. He does not have any nausea vomiting constipation or diarrhea. Denies any fevers or chills injury occurred shortly before returning here he had significant discomfort with trying to change positions were get up he denies any his head there is no loss of consciousness. Treatments BOX FABRICATOR: Reports: IV/IO - Related Data Allergies Allergy/AdvReac Type Severity Reaction Status Date / Time No Known Allergies Allergy Verified 12/13/17 20:43 Home Meds: Home Meds Aspirin [Ecotrin] 81 mg PO DAILY 11/08/16 [History] Losartan [Cozaar] 25 mg PO DAILY 11/08/16 [History] Calcium Carbonate [Calcium] 600 mg PO DAILY 07/28/17 [History] Multivitamin [Multivitamins] 1 tab PO DAILY 07/28/17 [History] predniSONE [Prednisone] 3 mg PO DAILY 07/28/17 [History] Ascorbic Acid [Vitamin C] 500 mg PO DAILY 09/06/17 [History] Carvedilol [Coreg] 3.125 mg PO BID 09/06/17 [History] Clopidogrel [Plavix] 75 mg PO DAILY 09/06/17 [History] Furosemide [Lasix] 20 mg PO Q48H 09/06/17 [History] Nitroglycerin [Nitrostat] 0.4 mg SL ASDIRECTED PRN 09/06/17 [History] Pantoprazole [ProTONIX] 40 mg PO DAILY 09/06/17 [History] Rosuvastatin [Crestor] 20 mg PO DAILY 09/06/17 [History] Sertraline [Zoloft] 50 mg PO DAILY 09/06/17 [History] Cholecalciferol (Vitamin D3) [Vitamin D] 1 tab PO DAILY 10/18/17 [History] Nitrofurantoin Monohyd/M-Cryst [Macrobid 100 mg Capsule] 100 mg PO Q12H #14 capsule 07/10/18 [Rx] Polyethylene Glycol 3350 [MiraLAX] 17 gm PO DAILY 12/13/17 [History] Past Medical History - Past Health History Medical/Surgical History: Denies Medical/Surgical History HEENT History: Reports: Impaired Vision 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 Cardiovascular History: Reports: High Cholesterol, Hypertension, Stents Musculoskeletal History: Reports: Fracture, Other (See Below) Other Musculoskeletal History: polymyalgia Endocrine/Metabolic History: Reports: Diabetes, Type II - Past Surgical History GI Surgical History: Reports: Appendectomy, Cholecystectomy Social & Family History - Caffeine Use Caffeine Use: Reports: Coffee ED ROS GENERAL - Review of Systems Review Of Systems: See Below Constitutional: Reports: No Symptoms HEENT: Reports: No Symptoms Respiratory: Reports: No Symptoms Cardiovascular: Reports: No Symptoms Endocrine: Reports: No Symptoms GI/Abdominal: Reports: Abdominal Pain. Denies: No Symptoms, Constipation, Diarrhea, Nausea, Vomiting : Reports: No Symptoms Musculoskeletal: Reports: Back Pain, Muscle Pain, Muscle Stiffness. Denies: No Symptoms, Neck Pain Skin: Reports: No Symptoms Neurological: Reports: No Symptoms Psychiatric: Reports: No Symptoms Hematologic/Lymphatic: Reports: No Symptoms Immunologic: Reports: No Symptoms ED EXAM,LOWER BACK PAIN/INJURY - Physical Exam Exam: See Below Exam Limited By: No Limitations General Appearance: Alert, No Apparent Distress Eye Exam: Bilateral Eye: Normal Inspection Ears: Normal External Exam, Normal Canal, Hearing Grossly Normal, Normal TMs Nose: Normal Inspection, Normal Mucosa, No Blood Throat/Mouth: Normal Inspection, Normal Lips, Normal Gums, Normal Oropharynx, Normal Voice, No Airway Compromise Head: Atraumatic, Normocephalic Neck: Normal Inspection, Supple. No: Lymphadenopathy (L), Lymphadenopathy (R) Respiratory/Chest: No Respiratory Distress, Lungs Clear, Normal Breath Sounds Cardiovascular: Normal Peripheral Pulses, Regular Rate, Rhythm, No Edema GI/Abdominal: Normal Bowel Sounds, Soft, Tender (Tenderness the mid right abdomen without associated rebound or guarding) Back Exam: Other (Patient was log rolled he has tenderness in the lower half of this thoracic spine in his lumbar spine is examined changes with position changes. He does not seem to have lateral discomfort rib palpation is unremarkable) Neurological: Alert, Oriented x 3 Course - Vital Signs Last Recorded V/S: Last Vital Signs Temp 36.8 C 12/13/17 20:44 Pulse 76 12/13/17 20:44 Resp 14 12/13/17 20:44 BP 129/80 12/13/17 20:44 Pulse Ox 97 12/13/17 20:44 - Orders/Labs/Meds Orders: Active Orders 24 hr Category Date Time Status Chest Abdomen Pelvis w Cont [CT] Stat Exams 12/13/17 21:10 Taken Lumbar Spine wo Cont [CT] Stat Exams 12/13/17 21:10 Taken Thoracic Spine wo Cont [CT] Stat Exams 12/13/17 21:10 Taken CULTURE URINE [RM] Stat Lab 12/13/17 23:35 Ordered Nitrofurantoin Cambria/Macrocryst [Macrobid] Med 12/13/17 23:36 Once 100 mg PO ONETIME ONE Sodium Chloride 0.9% [Normal Saline] 1,000 ml Med 12/13/17 21:15 Active IV ASDIRECTED Medication Orders Sodium Chloride (Normal Saline) 1,000 mls @ 125 mls/hr IV ASDIRECTED STEFAN Last Admin: 12/13/17 22:09 Dose: 125 mls/hr Labs: Laboratory Tests 12/13/17 12/13/17 12/13/17 Range/Units 21:25 21:25 22:05 WBC 6.44 (4.23-9.07) K/mm3 RBC 4.54 L (4.63-6.08) M/mm3 Hgb 12.5 L (13.7-17.5) gm/L Hct 38.8 L (40.1-51.0) % MCV 85.5 (79.0-92.2) fl MCH 27.5 (25.7-32.2) pg MCHC 32.2 (32.2-35.5) g/dl RDW Std Deviation 45.2 H (35.1-43.9) fL Plt Count 140 L (163-337) K/mm3 MPV 9.1 L (9.4-12.3) fl Neutrophils % (Manual) 69 H (40-60) % Band Neutrophils % 0 (0-10) % Lymphocytes % (Manual) 28 (20-40) % Atypical Lymphs % 0 % Monocytes % (Manual) 2 (2-10) % Eosinophils % (Manual) 1 (0.8-7.0) % Basophils % (Manual) 0 L (0.2-1.2) Platelet Estimate Adequate Plt Morphology Comment Normal Anisocytosis 1+ slight RBC Morph Comment Not Reportable Sodium 135 L (136-145) mEq/L Potassium 3.9 (3.5-5.1) mEq/L Chloride 99 (98-107) mEq/L Carbon Dioxide 27 (21-32) mEq/L Anion Gap 12.9 (5-15) BUN 21 H (7-18) mg/dL Creatinine 1.3 (0.7-1.3) mg/dL Est Cr Clr Drug Dosing 34.82 mL/min Estimated GFR (MDRD) 52 (>60) mL/min BUN/Creatinine Ratio 16.2 (14-18) Glucose 118 H (83-115) mg/dL Calcium 9.0 (8.5-10.1) mg/dL Total Bilirubin 0.7 (0.2-1.0) mg/dL AST 26 (15-37) U/L ALT 27 (16-63) U/L Alkaline Phosphatase 137 H (46-116) U/L Total Protein 6.9 (6.4-8.2) g/dl Albumin 3.3 L (3.4-5.0) g/dl Globulin 3.6 gm/dL Albumin/Globulin Ratio 0.9 L (1-2) Urine Color Yellow (Yellow) Urine Appearance Clear (Clear) Urine pH 7.0 (5.0-8.0) Ur Specific [place] 1.020 (1.005-1.030) Urine Protein 2+ H (Negative) Urine Glucose (UA) Negative (Negative) Urine Ketones Negative (Negative) Urine Occult Blood Trace-intact H (Negative) Urine Nitrite Negative (Negative) Urine Bilirubin Negative (Negative) Urine Urobilinogen 1.0 (0.2-1.0) Ur Leukocyte Esterase 1+ H (Negative) Urine RBC 5-10 H (0-5) /hpf Urine WBC 30-40 H (0-5) /hpf Ur Epithelial Cells 5-10 H (0-5) /hpf Amorphous Sediment Few H (NOT SEEN) /hpf Urine Bacteria Many H (FEW) /hpf Urine Mucus Not seen (FEW) /hpf Meds: Medications Generic Name Dose Route Start Last Admin Trade Name Freq PRN Reason Stop Dose Admin Sodium Chloride 1,000 mls @ 125 mls/hr 12/13/17 21:15 12/13/17 22:09 Normal Saline IV 125 mls/hr ASDIRECTED STEFAN Administration Discontinued Medications Generic Name Dose Route Start Last Admin Trade Name Vineet PRN Reason Stop Dose Admin Sodium Chloride 500 mls @ 999 mls/hr 12/13/17 21:13 12/13/17 21:38 Normal Saline IV 12/13/17 21:43 999 mls/hr .BOLUS ONE Administration Iopamidol 100 ml 12/13/17 22:04 Isovue-370 (76%) IVPUSH 12/13/17 22:05 ONETIME ONE Morphine Sulfate 2 mg 12/13/17 21:14 12/13/17 21:39 Morphine IVPUSH 12/13/17 21:15 2 mg ONETIME ONE Administration - Re-Assessments/Exams Free Text/Narrative Re-Assessment/Exam: 12/13/17 23:36 CAT scan is essentially negative urinalysis could be suggestive of infectious process given that he did fall for no good reason may be due to a developing UTI we'll go ahead and treat Departure - Departure Time of Disposition: 23:37 Disposition: Home, Self-Care 01 Clinical Impression: Fall, Back contusion, Urinary tract infection - Discharge Information Prescriptions: Nitrofurantoin Monohyd/M-Cryst [Macrobid 100 mg Capsule] 100 mg PO Q12H #14 capsule Forms: ED Department Discharge Additional Instructions: Return to the emergency room with any questions problems worsening symptoms. Follow-up with your regular physician after you complete your antibiotics. Tylenol as needed for discomfort - My Orders Last 24 Hours: My Active Orders 12/13/17 21:10 Chest Abdomen Pelvis w Cont [CT] Stat Lumbar Spine wo Cont [CT] Stat Thoracic Spine wo Cont [CT] Stat 12/13/17 21:15 Sodium Chloride 0.9% [Normal Saline] 1,000 ml IV ASDIRECTED 12/13/17 23:35 CULTURE URINE [RM] Stat 12/13/17 23:36 Nitrofurantoin Cambria/Macrocryst [Macrobid] 100 mg PO ONETIME ONE - Assessment/Plan Last 24 Hours: My Active Orders 12/13/17 21:10 Chest Abdomen Pelvis w Cont [CT] Stat Lumbar Spine wo Cont [CT] Stat Thoracic Spine wo Cont [CT] Stat 12/13/17 21:15 Sodium Chloride 0.9% [Normal Saline] 1,000 ml IV ASDIRECTED 12/13/17 23:35 CULTURE URINE [RM] Stat 12/13/17 23:36 Nitrofurantoin Cambria/Macrocryst [Macrobid] 100 mg PO ONETIME ONE
[2017-12-13] MEDS ORDERED: Sodium Chloride 0.9% 500 ML IV ONE (21:13)
[2017-12-13] MEDS ORDERED: Morphine 2 MG/ML Syringe IVPUSH ONE (21:14)
[2017-12-13] MEDS ORDERED: Sodium Chloride 0.9% 1,000 ML IV SCH (21:15)
[2017-12-13] MEDS ORDERED: Iopamidol 755 Mg/ML 100 ML Bottle IVPUSH ONE (22:04)
[2017-12-13] MEDS ORDERED: Nitrofurantoin Monohydrate/Macrocrystalline 100 MG Cap PO ONE (23:36)
--- NOTE | 2017-12-14 09:26 | CT ---
CT chest Technique: Multiple axial sections were obtained from above the lung apices inferiorly through the lung bases. Intravenous contrast was utilized. Small right-sided pleural effusion is seen. Very minimal left-sided pleural effusion is seen. Heart is enlarged. Coronary artery calcification is seen. Mediastinum and hilar regions show no adenopathy. Minimal dependent atelectasis is incidentally noted. No pneumothorax is seen. Minimal peribronchial thickening is seen. No discrete rib fracture is noted. Degenerative change is noted within the thoracic spine without compression deformities. Impression: 1. Findings within the chest suspicious for mild CHF. Nothing acute is otherwise seen. Diagnostic code #3 I agree with preliminary report issued by [facility] ([employer] preliminary report dictated on 12/14/17, 12:25 AM Central Time) CT abdomen and pelvis Technique: Multiple axial sections were obtained from above the dome of the diaphragm inferiorly through the pubic symphysis. Intravenous contrast was utilized. No oral contrast was given. Delayed images were also obtained through the abdomen and pelvis. Findings: Liver shows diffuse fatty infiltration. Previous cholecystectomy is seen. No focal abnormality is seen within the liver. Spleen appears within normal limits. Adrenal glands show no nodule. Pancreas is within normal limits. Kidneys show symmetric contrast enhancement without hydronephrosis. Delayed images show contrast within the ureters and bladder without evidence of contrast extravasation. Calle catheter is present within the bladder. Aorta shows atherosclerotic change without aneurysm. No retroperitoneal adenopathy or mesenteric abnormalities are seen. No pelvic mass or adenopathy is seen. Mild increased stool is seen throughout the colon. No free fluid or inflammatory change is seen. Bone window settings were reviewed which show degenerative change scattered within the spine. Impression: 1. Incidental findings as noted above. Nothing acute is seen on CT study of the abdomen and pelvis. Diagnostic code #2 I agree with preliminary report issued by [facility] ([employer] preliminary report dictated on 12/14/17, 12:25 AM Central Time)
--- NOTE | 2017-12-14 09:26 | CT ---
CT thoracic spine Technique: Multiple axial sections through the thoracic spine were obtained. Reconstructed sagittal and coronal images were reviewed. Findings: Diffuse anterior osteophytes are seen within the mid and lower thoracic spine. Diffuse disc space narrowing is seen. Vertebral body heights are maintained. No fracture is appreciated. No bony central canal stenosis is noted. No abnormal subluxation is seen. Scattered degenerative apophyseal change is noted. Impression: 1. Diffuse degenerative change as noted above. 2. Nothing acute is seen. Diagnostic code #2 I agree with preliminary report issued by [facility] ([facility] preliminary report dictated on 12/14/17, 12:25 AM Central Time)
--- NOTE | 2017-12-14 09:26 | CT ---
CT lumbar spine Technique: Multiple axial sections through the lumbar spine were obtained. Reconstructed coronal and sagittal images were obtained. Findings: Severe disc space narrowing is noted at L1-L2, L2-L3, L3-L4 and L4-L5. Vacuum phenomena is seen within multiple lumbar discs. Diffuse anterior osteophytes are seen. Degenerative apophyseal change is seen diffusely within the lumbar spine. Diffuse bulging discs are seen. Moderate to severe central canal stenosis noted at L5-S1. Moderate central canal stenosis is noted at L4-L5 with mild central canal stenosis at L3-L4. No fracture is seen. Minimal spondylolisthesis is noted at L5-S1 compatible with degenerative apophyseal change. Diffuse neural foraminal narrowing is seen. Impression: 1. Diffuse degenerative change as noted above. Nothing acute is seen. Diagnostic code #3 I agree with preliminary report issued by [email or web address] ([facility] preliminary report dictated on 12/14/17, 12:39 AM Central Time)
== END 2017-12-14 00:25 | disposition home or self-care (01) ==
LOC: JD.ED 20:42
DX: S30.0XXA Contusion of lower back and pelvis, initial encounter (principal); N39.0 Urinary tract infection, site not specified; E78.00 Pure hypercholesterolemia, unspecified; I10 Essential (primary) hypertension; E11.9 Type 2 diabetes mellitus without complications; Z79.82 Long term (current) use of aspirin; Z79.899 Other long term (current) drug therapy; W01.10XA Fall on same level from slipping, tripping and stumbling with subsequent striking against unspecified object, initial encounter
CPT/HCPCS: 36415; 51702; 71260; 72128; 72131; 74177; 80053; 81001; 85007; 85027; 87086; 96361; 96374; 99285; A9270; J2270; J7040; 99284

== ENCOUNTER 2018-01-21 17:26 | Emergency (ER) | payer MEDICARE, OTHER ==
[2018-01-21 17:32] VITALS: BP 108/65
--- NOTE | 2018-01-21 19:42 | EDM.PDOC ---
ED HPI GENERAL MEDICAL PROBLEM - General Chief Complaint: ENT Problem Stated Complaint: [facility] Time Seen by Provider: 01/21/18 19:42 Source of Information: Reports: Patient, Family (spouse) History Limitations: Reports: No Limitations - History of Present Illness INITIAL COMMENTS - FREE TEXT/NARRATIVE: 87-year-old male from [facility] presents to the ED with acute bleeding from his left anterior naris. States bleeding occurred suddenly today after sneezing and was very persistent for the last several hours. Nasal clamp and packing with clinics he has been able to get the nose bleeding will stop by the time I was able to see him. States initial bleeding started about 1500 hrs. today. Of note the patient is on Plavix and aspirin. He states he said milder nosebleeds but never to this severity in the past . Denies any recent nasal trauma. Onset: Today Onset Date: 01/21/18 Onset Time: 15:00 Duration: Hour(s): Location: Reports: Face (Persistent bleeding left naris) Quality: Reports: Other (No pain just active persistent bleeding from the left) Severity: Moderate (nose.) Improves with: Reports: Other (SL come under control with nasal clamp and packing with clinics.) Worsens with: Reports: None Context: Reports: Other (Occurred spontaneously after an aggressive sneeze.) Associated Symptoms: Reports: No Other Symptoms Treatments CLOTH SANDER: Reports: Other (see below) (None.) - Related Data Allergies Allergy/AdvReac Type Severity Reaction Status Date / Time No Known Allergies Allergy Verified 01/21/18 17:32 Home Meds: Home Meds Aspirin [Ecotrin] 81 mg PO DAILY 11/08/16 [History] Losartan [Cozaar] 25 mg PO DAILY 11/08/16 [History] Carvedilol [Coreg] 3.125 mg PO BID 09/06/17 [History] Clopidogrel [Plavix] 75 mg PO DAILY 09/06/17 [History] Furosemide [Lasix] 40 mg PO DAILY 09/06/17 [History] Nitroglycerin [Nitrostat] 0.4 mg SL ASDIRECTED PRN 09/06/17 [History] Pantoprazole [ProTONIX] 40 mg PO DAILY 09/06/17 [History] Rosuvastatin [Crestor] 20 mg PO BEDTIME 09/06/17 [History] Sertraline [Zoloft] 50 mg PO BEDTIME 09/06/17 [History] Acetaminophen 500 mg PO BID PRN 01/21/18 [History] Acetaminophen 500 mg PO TID 01/21/18 [History] Calcium Carbonate/Vitamin D3 [Calcium 600-Vit D3 400 Tablet] 400 - 600 mg PO DAILY 01/21/18 [History] Cranberry Extract [Cranberry] 405 mg PO BID 01/21/18 [History] Ipratropium/Albuterol Sulfate [Iprat-Albut 0.5-3(2.5) MG/3 ML] 1 ampule INH QID 01/21/18 [History] Multivitamin with Minerals [Multiple Vitamin] 1 tab PO DAILY 01/21/18 [History] Sennosides/Docusate Sodium [Senna Plus Tablet] 2 tab PO DAILY 01/21/18 [History] Past Medical History - Past Health History Medical/Surgical History: Denies Medical/Surgical History HEENT History: Reports: Impaired Vision 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 Cardiovascular History: Reports: High Cholesterol, Hypertension, Stents (This is the reason he is on Plavix.) Genitourinary History: Reports: Other (See Below) Other Genitourinary History: Indwelling hedrick catheter Musculoskeletal History: Reports: Fracture, Other (See Below) Other Musculoskeletal History: polymyalgia Endocrine/Metabolic History: Reports: Diabetes, Type II - Past Surgical History GI Surgical History: Reports: Appendectomy, Cholecystectomy Social & Family History - Tobacco Use Smoking Status *Q: Never Smoker - Caffeine Use Caffeine Use: Reports: Coffee - Recreational Drug Use Recreational Drug Use: No - Living Situation & Occupation Living situation: Reports: (. [facility] Extended Care Facility Occupation: Retired ED ROS ENT - Review of Systems Review Of Systems: See Below Constitutional: Reports: Malaise, Weakness, Fatigue, Decreased Appetite. Denies : Fever, Chills HEENT: Reports: Nosebleed (See history of present illness) Respiratory: Reports: Shortness of Breath. Denies: Wheezing, Pleuritic Chest Pain, Cough Cardiovascular: Reports: Dyspnea on Exertion (Chronically). Denies: Chest Pain , Blood Pressure Problem, Claudication, Edema, Lightheadedness, Orthopnea Endocrine: Reports: Fatigue GI/Abdominal: Reports: No Symptoms : Reports: Frequency, Other (Known BPH. Nocturia usually 3.) Musculoskeletal: Reports: Neck Pain, Shoulder Pain, Back Pain, Joint Pain ( Knees and hips at times.) Skin: Reports: Other (Uses very easily particular dorsal hands and forearms because of being on Plavix and aspirin) Neurological: Reports: No Symptoms, Difficulty Walking (Due to lower extremity weakness.). Denies: Confusion, Dizziness, Headache, Numbness, Paresthesia, Pre- Existing Deficit, Seizure, Syncope, Tingling, Tremors, Trouble Speaking Psychiatric: Reports: No Symptoms Hematologic/Lymphatic: Reports: No Symptoms Immunologic: Reports: No Symptoms ED EXAM, ENT - Physical Exam Exam: See Below Exam Limited By: No Limitations General Appearance: Alert, WD/WN, Moderate Distress (He is moderately agitated by the fact that he is what had to wait so long to be seen in the ED. The ED today was extremely busy.) Eye Exam: Bilateral Eye: Other (Patient has very poor vision right eye.) Nose: Active Bleeding (Very minimal from the left side), Dried Blood, Other ( The nasal mucosa is very thin bilaterally. It is mildly erythematous bilaterally. Bleeding is from the anterior mid left nasal septum. This area was cauterized with silver nitrate.). No: Nasal Swelling, Nasal Tenderness, Septal Deformity, Septal Hematoma Mouth/Throat: Normal Inspection, Normal Gums (Fluoroscopy of the naris.), Other (No clot in the posterior oropharynx.) Head: Atraumatic, Normocephalic Neck: Normal Inspection, Limited Range of Motion, Tender Lateral. No: Lymphadenopathy (L), Lymphadenopathy (R) ED ENT PROCEDURES - Epistaxis Procedure Indication: Epistaxis, Uncontrolled Recent anticoagulants/antiplatlets: Yes Uncontrolled HTN: No Recent septal/nasal surgery: No Site of bleeding: Left Nare, Anterior Clearing of clots: Other (Occurred after sudden sneeze.) Ice pack to area: No Chemical cautery: Silver Nitrate Topical Course - Vital Signs Last Recorded V/S: Last Vital Signs Temp 37.7 C 01/21/18 17:28 Pulse 75 01/21/18 17:28 Resp 18 01/21/18 17:28 BP 108/65 01/21/18 17:28 Pulse Ox 99 01/21/18 17:28 - Radiology Interpretation Free Text/Narrative:: 87-year-old male presents to the ED with an aggressive left-sided nosebleed after sudden sneeze. Left naris started bleeding and has been bleeding for good hour and a half before decision made to come to the ED. At about 1500 hrs. today. 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 At this time I seen him his bleeding had pretty will come under control with a nasal clamp and he had packed the left naris with clinics. He did not have any blood down the posterior oropharynx. Visualization of the nasal mucosa it is very thin appropriate for his age and very erythematous. No ulcers were present. Bleeding was appreciated be coming from the left anterior mid nasal septum. This area was cauterized with silver nitrate with good control of the bleeding. I reviewed in 15 minutes later no further bleeding had occurred. He was therefore discharged home to use Polysporin ointment be a Q- tip into both anterior naris every night at bedtime for one week. Departure - Departure Time of Disposition: 20:17 Disposition: Home, Self-Care 01 Condition: Fair Clinical Impression: Epistaxis not due to trauma - Discharge Information *PRESCRIPTION DRUG MONITORING PROGRAM REVIEWED*: Not Applicable *COPY OF PRESCRIPTION DRUG MONITORING REPORT IN PATIENT CAL: Not Applicable Instructions: Nosebleed, [id number] Referrals: Keshawn Mcdaniel MD [Primary Care Provider] - Forms: ED Department Discharge Additional Instructions: Evaluation the emergency room today in regards to acute onset of left-sided nosebleed after a sneeze. Due to being on Plavix and aspirin the bleeding persisted rather aggressively. Mentation reveals an area of very thin mucosa or tissue on the left medial naris. Active bleeding was appreciated and was cauterized with silver nitrate in 3 different areas. No changes to medications are to be made at this time. Just use of Polysporin ointment placed into the nose at bedtime every night with a Q-tip. This is to coat the lining of the nose with a septum midline of the nose for one week. This is in an effort to try and prevent further nosebleeds from occurring. If you have a humidifier in her room this would be useful for the next week or so. Coarse return to the ED if any further bleeding occurs.
== END 2018-01-21 20:25 | disposition home or self-care (01) ==
LOC: JD.ED 17:26
DX: R04.0 Epistaxis (principal); I10 Essential (primary) hypertension; E11.9 Type 2 diabetes mellitus without complications; Z79.82 Long term (current) use of aspirin; Z79.899 Other long term (current) drug therapy
CPT/HCPCS: 30901; 99285-25